=== PATIENT | male | born 1945 | race Caucasian/White ===

== ENCOUNTER 2017-09-13 11:45 | Outpatient (CLI) | payer MEDICARE, MEDICAID ==
[~2017-09-13] VITALS: Ht 175.3 cm; Wt 88.5 kg
[~2017-09-13 11:45] MED LIST: ASCO500T20 PO; ASP81TEC PO; MULT-850 PO; RSP3T PO
[2017-09-13] MEDS ORDERED: MULT-1061 PO (12:09)
[2017-09-13] MEDS ORDERED: [UNRECOGNIZED DRUG - CODE] PO (12:09)
[2017-09-13] MEDS ORDERED: METO50TA15 PO (12:09)
[2017-09-13] MEDS ORDERED: METO75TA PO (12:09)
[2017-09-13] MEDS ORDERED: ASPI-586 PO (12:09)
[2017-09-13] MEDS ORDERED: RISP4TAB2 PO (12:09)
[2017-09-13] MEDS ORDERED: ATOR10TA66 PO (12:09)
== END 2017-09-13 12:33 ==
LOC: PREOP 11:45
PROVIDERS: ATTEND Internal Medicine
DX: Z01.818 Encounter for other preprocedural examination (principal); Z86.010 Personal history of colon polyps

== ENCOUNTER 2017-09-17 07:17 | Day surgery (SDC) | payer MEDICARE, MEDICAID ==
--- NOTE | 2017-09-09 07:56 | HISTORY AND PHYSICAL ---
DATE OF SERVICE: COLONOSCOPY HISTORY AND PHYSICAL HISTORY OF PRESENT ILLNESS: The patient is a 71-year-old white male referred by Dr. Marco Antonio Cintron for screening colonoscopy. He has a past history of colon polyps, last underwent colonoscopy and his second in 2008 at which time no evidence for neoplasia was identified. He reports no significant change in his health history. See past medical history below. He denies bowel habit change abdominal pain, bright red blood per rectum or melena. He also denies issues with heartburn or dysphagia. PAST MEDICAL HISTORY: Significant for hyperlipidemia and hypertension. He underwent cardiac catheterization in 2010 at which time no significant blockage was noted with an ejection fraction of 60% and no regional wall motion abnormalities were present. His end diastolic pressure at that time was normal as well. He has a presumed diagnosis of schizophrenia. He takes risperidone and we had received several letters, both several pages long, discussing the fact that he was going to be returning to work at the [employer] and they were making a movie out of his life for which Greg Lemon would be starring. PAST SURGICAL HISTORY: He reports no past surgeries. FAMILY HISTORY: He is adopted and does not know the specifics, but believes his father and mother both older than 60 of some form of cancer, but he is not sure what type. PHYSICAL EXAMINATION: GENERAL: Reveals a pleasant, well-appearing white male, who did not bring up any personal details about his life during the interview, was pleasant and appropriate. VITAL SIGNS: Blood pressure 140/86. Heart rate 72 and regular. HEENT: Unremarkable. There is a Mallampati class 2 oropharyngeal configuration without evidence for pharyngeal erythema. NECK: Revealed no JVD, adenopathy or bruits. CHEST: Clear. CARDIOVASCULAR: Revealed a regular rate and rhythm without murmur, S3 or S4. ABDOMEN: Soft, supple without mass or organomegaly or tenderness. EXTREMITIES: Reveal no cyanosis, clubbing or edema. ASSESSMENT AND PLAN: The patient is set up for screening colonoscopy on 09/17. Prep instructions with split dose Colyte were given and questions were answered. In review of his electronic medical record in addition to evaluation, 40 minutes of care time was spent by myself and another 15 minutes of staff time going over prep instructions and answering his questions. I thank you for the referral of this pleasant gentleman. Job ID: [id number] DocumentID: [id number] Dictated Date: 08/31/2017 09:10:47 Extension Course Counselor Date: 08/31/2017 09:35:08 Dictated By: STEVAN PRABHAKAR MD
[~2017-09-17] VITALS: Ht 175.3 cm; Wt 88.5 kg
[~2017-09-17 07:17] MED LIST changes: +ASPI-586 PO; +ATOR10TA66 PO; +METO50TA15 PO; +METO75TA PO; +MULT-1061 PO; +RISP4TAB2 PO; +[UNRECOGNIZED DRUG - CODE] PO
--- OUTSIDE RECORDS SUMMARY | 2017-09-17 07:20 | XMS REPORT ---
Author Author DAISY JACKMAN [facility] DENTAL Address Unknown Care Team Providers Care Fuel Cell Builder Name Role Phone AUGUSTINADAISY Unavailable PROBLEMS Type Condition ICD9-CM Code [id number] Code Onset Dates Condition Status SNOMED Code Assessment Dental examination Z01.20 Mar, Active [id number] ALLERGIES Substance Reaction Event Type Date Status N.K.D.A. Unknown Non Drug Allergy Mar, Unknown SOCIAL HISTORY No smoking Hx information available PLAN OF CARE VITAL SIGNS MEDICATIONS Medication Instructions Dosage Frequency Start Date End Date Duration Status Metoprolol Tartrate Active Centrum Silver Adult 50+ Active Vitamin C & D3/Eun Hips Active Risperdal Active Baby Aspirin Active Atorvastatin Calcium Active RESULTS No Results PROCEDURES Procedure Date Ordered Related Diagnosis Body Site COMP ORAL EVALUATION - NEW/EST PT Mar 31, 2016 PANORAMIC FILM SEE ALSO CODE [id number] Mar 31, 2016 IMMUNIZATIONS No Known Immunizations
[2017-09-17] MEDS ORDERED: D5 LR IV SOLUTION 1,000 ML IV STA (07:30)
[2017-09-17] MEDS ORDERED: FLUMAZENIL (ROMAZICON) 0.1 MG/ML 5 ML VIAL INJ PRN (07:30)
[2017-09-17] MEDS ORDERED: LIDOCAINE JELLY 2% (XYLOCAINE) 5 ML TUBE MM PRN (07:30)
[2017-09-17] MEDS ORDERED: MIDAZOLAM 2 MG/2 ML (VERSED) VIAL IVP PRN (07:30)
[2017-09-17] MEDS ORDERED: NALOXONE 0.4 MG/ML 1 ML (NARCAN) VIAL IVP PRN (07:30)
[2017-09-17] MEDS ORDERED: D5 LR IV SOLUTION 1,000 ML IV ONE (07:36)
--- NOTE | 2017-09-17 07:39 | Pre-Op Note & Conscious Sedat ---
Pre-Operative Progress Note H&P Reviewed The H&P was reviewed, patient examined and no changes noted. Date H&P Reviewed: September 17, 2017 Time H&P Reviewed: 07:38 Conscious Sedation Pre-Proced ASA Class: 2 Airway Mallampati Classification: (tangirnaq appropriate class) I. II. III, IV Lungs Heart ASA score ASA 1: a normal healthy patient ASA 2: a patient with a mild systemic disease (mid diabetes, controlled hypertension, obesity ASA 3: a patient with a severe systemic disease that limits activity (angina , COPD, prior Myocardial infarction) ASA 4: a patient with an incapacitating disease that is a constant threat to life (CHF, renal failure) ASA 5: a moribund patient not expected to survive 24 hrs. (ruptured aneurysm) ASA 6: a declared brain patient whose organs are being harvested. For emergent operations, add the letter E after the classification Grade 2 Sedation Plan: Analgesia, Amnesia, Plan communicated to team members, Discussed options with patient/fam, Discussed risks with patient/fam Note The patient is an appropriate candidate to undergo the planned procedure, sedation, and anesthesia. The patient immediately re-assessed prior to indication. STEVAN PRABHAKAR MD September 17, 2017 07:39
[2017-09-17 07:43] VITALS: BP 174/110
[2017-09-17] MEDS ORDERED: fentaNYL INJECTION 100 MCG/2 ML AMP ONE (08:22)
[2017-09-17] MEDS ORDERED: MIDAZOLAM 2 MG/2 ML (VERSED) VIAL ONE ×2 (08:22→08:23)
[2017-09-17] MEDS ORDERED: LIDOCAINE JELLY 2% (XYLOCAINE) 5 ML TUBE ONE (08:23)
[2017-09-17] MEDS: fentaNYL INJECTION 100 MCG/2 ML AMP IVP PRN ×2 (08:35→08:38)
[2017-09-17 09:00] VITALS: BP 125/83
[2017-09-17 09:30] VITALS: BP 122/85
[2017-09-17 10:25] VITALS: BP 122/85
--- NOTE | 2017-09-17 19:18 | OPERATIVE REPORT ---
DATE OF SERVICE: 09/17/2017 COLONOSCOPY SUMMARY INDICATION FOR THE PROCEDURE: Surveillance colonoscopy. History of colon polyps. The patient was placed in the left lateral decubitus position. Prior to undergoing colonoscopy, a digital rectal evaluation was performed. Anal sphincter tone was normal. Prostate is mildly enlarged, anodular, nontender on digital inspection. No other abnormalities noted on digital inspection of the anal canal or distal rectal vault. The colonoscope was then inserted into the rectum and under direct visualization advanced to the cecum. The cecum was identified by identification of the ileocecal valve and cecal strap. Photographic documentation was obtained. Careful inspection was made as the colonoscope was withdrawn. FINDINGS: There was no evidence for internal or external hemorrhoids. Two small prominent anal papillae were noted with no evidence for neoplasia. The rectum, sigmoid colon and descending colon as well as splenic flexure were unremarkable. One moderate sized transverse colonic diverticulum was noted without evidence for diverticulitis. No other transverse colonic abnormalities were noted. The hepatic flexure, ascending colon and cecum were unremarkable. ASSESSMENT: No evidence for neoplasia on today's evaluation. Would advocate consideration for repeat screening colonoscopy in 10 years. Digital rectal evaluation was compatible with mild BPH. One moderate sized transverse colonic diverticulum was noted, did not see evidence for sigmoid diverticular disease and there is no evidence for diverticulitis. Job ID: [id number] DocumentID: [id number] Dictated Date: 09/17/2017 11:57:24 Butcher Fish Date: 09/17/2017 19:17:20 Dictated By: STEVAN PRABHAKAR MD
== END 2017-09-17 10:25 | disposition home or self-care (01) ==
LOC: ENDO 07:17
PROVIDERS: ATTEND Internal Medicine
DX: Z12.11 Encounter for screening for malignant neoplasm of colon (principal); Z86.010 Personal history of colon polyps; K57.30 Diverticulosis of large intestine without perforation or abscess without bleeding; N40.0 Benign prostatic hyperplasia without lower urinary tract symptoms; I10 Essential (primary) hypertension; E78.5 Hyperlipidemia, unspecified; Z79.82 Long term (current) use of aspirin; Z79.899 Other long term (current) drug therapy